=== PATIENT | male | born 1985 | race African-American/Black ===

== ENCOUNTER 2017-06-10 22:44 | Emergency (ER) | payer OTHER ==
[2017-06-10 22:51] VITALS: BP 141/88; PULSE 77; TEMP 98.1; BMI 27.5
--- NOTE | 2017-06-10 23:48 | PDOC ---
History of Present Illness - General History Source: Patient <Jamel Delgadillo - Last Filed: 06/11/17 01:29> - General History Source: Patient, Parent(s) Exam Limitations: No Limitations - History of Present Illness Initial Comments: 06/10/17 23:59 The patient is a 31 year old male, with no significant past medical history, who presents to the emergency department s/p syncopal episode earlier this evening. The patient reports he was running up 6 flights of stairs to go to the bathroom, but when he finally got to the bathroom and urinated he passed out. Patient reports he collapsed on the wooden floor and hit his head. Patient states it was as if the lights went out, but he could still hear his mother talking. Mother denies any seizure activity, changes in vision, headache, chest pain, shortness of breath, diaphoresis, or palpitations. Patient reports some lightheadedness and dizziness after his episode, but states he was able to ambulate s/p incident. He reports similar lightheadedness when working out, but no associated syncope. Patient reports increased stress lately and states he has not been eating as well as he would like. He denies any abdominal pain, nausea, vomiting, diarrhea, or constipation. He denies any urinary incontinence , dysuria, hematuria, frequency, or urgency. He denies any recent travel or sick contacts. Allergies: NKDA Past Surgical History: None reported Social History: Father: heart disease. Non smoker. No ETOH or recreational drug use. <Mateusz Rodriguez - Last Filed: 06/11/17 01:31> - General Chief Complaint: Syncope/Near Syncope Stated Complaint: FATIGUE Time Seen by Provider: 06/10/17 23:48 Past History - Past Medical History COPD: No - Suicide/Smoking/Psychosocial Hx Smoking History: Never smoked Have you smoked in the past 12 months: No Information on smoking cessation initiated: No Hx Alcohol Use: No Drug/Substance Use Hx: No Substance Use Type: None <Jamel Delgadillo - Last Filed: 06/11/17 01:29> <Mateusz Rodriguez - Last Filed: 06/11/17 01:31> - Past Medical History Allergies/Adverse Reactions: Allergies Allergy/AdvReac Type Severity Reaction Status Date / Time No Known Allergies Allergy Verified 06/10/17 22:51 Home Medications: Ambulatory Orders NK [No Known Home Medication] 06/10/17 Review of Systems - Review of Systems Able to Perform ROS?: Yes Comments:: 06/10/17 23:59 CONSTITUTIONAL: Absent: fever, no chills, no fatigue EYES: Absent: visual changes ENT: Absent: ear pain, no sore throat CARDIOVASCULAR: Absent: chest pain, no palpitations RESPIRATORY: Absent: cough, no SOB GI: Absent: abdominal pain, no nausea, no vomiting, no constipation, no diarrhea GENITOURINARY: Absent: dysuria, no frequency, no hematuria MUSCULOSKELETAL: Absent: back pain, no arthralgia, no myalgia SKIN: Absent: rash NEURO: Present: Syncope, dizziness, lightheadedness Absent: headache, seizure <Mateusz Rodriguez - Last Filed: 06/11/17 01:31> *Physical Exam - Vital Signs Last Vital Signs Temp Pulse Resp BP Pulse Ox 98.1 F 77 18 141/88 100 06/10/17 22:48 06/10/17 22:48 06/10/17 22:48 06/10/17 22:48 06/10/17 22:48 <Jamel Delgadillo - Last Filed: 06/11/17 01:29> - Vital Signs Last Vital Signs Temp Pulse Resp BP Pulse Ox 98.1 F 77 18 141/88 100 06/10/17 22:48 06/10/17 22:48 06/10/17 22:48 06/10/17 22:48 06/10/17 22:48 - Physical Exam Comments: 06/10/17 23:59 GENERAL: Well-appearing, well-nourished. No apparent distress. HEENT: Normocephalic, atraumatic. PERRL, EOM intact. CARDIOVASCULAR: Normal S1, S2. Regular rate and rhythm. PULMONARY: Clear to auscultation bilaterally. ABDOMEN: Soft, non-distended, non-tender. EXTREMITIES: Normal ROM in all four extremities. No gross deformities. SKIN: Warm, dry. No rash NEUROLOGICAL: No focal neurological deficits. <Mateusz Rodriguez - Last Filed: 06/11/17 01:31> ED Treatment Course - LABORATORY CBC & Chemistry Diagram: 06/11/17 00:10 06/11/17 00:10 <Jamel Delgadillo - Last Filed: 06/11/17 01:29> - LABORATORY CBC & Chemistry Diagram: 06/11/17 00:10 06/11/17 00:10 - RADIOLOGY Radiograph Interpretation: 06/11/17 01:31 EXAM: Head CT INTERPRETED BY: Dr. Pérez REVIEWED BY: Dr. Delgadillo IMPRESSION: No acute brain parenchymal abnormality. No hemorrhage, mass or acute territorial infarct. Clear visualized paranasal sinuses. Visualized mastoid air cells clear. <Mateusz Rodriguez - Last Filed: 06/11/17 01:31> Medical Decision Making - Medical Decision Making 06/11/17 01:27 Dr. Delgadillo: The scribe's documentation has been prepared under my direction and personally reviewed by me in its entirery. I confirm that the note above accurately reflects all work, treatment, procedures, and medical decision making performed by me. All labs and Ct scan of head return to be negative. Pt feels better. AAO X3. Pt to be discharged. Advised to follow up with cardiology as needed. <Jamel Delgadillo - Last Filed: 06/11/17 01:29> *DC/Admit/Observation/Transfer - Discharge Dispostion Admit: No <Jamel Delgadillo - Last Filed: 06/11/17 01:29> - Attestations Scribe Attestion: 06/10/17 23:59 Documentation prepared by Mateusz Rodriguez, acting as medical administrative specialist for Jamel Delgadillo DO. <Mateusz Rodriguez - Last Filed: 06/11/17 01:31> Diagnosis at time of Disposition: Fainting Qualifiers: Syncope type: vasovagal syncope Qualified Code(s): R55 - Syncope and collapse - Discharge Dispostion Disposition: HOME Condition at time of disposition: Stable - Referrals Referrals: Maynor Magana MD [Staff Physician] - - Patient Instructions Printed Discharge Instructions: DI for Syncope in Adults (Fainting)
[2017-06-11 00:18] LABS: BASOPHIL 0.5 % (0-2.0); EOSINOPHIL 2.2 % (0-4.5); MCHC 33.9 g/dl (32.0-35.9); MEAN CELL VOLUME 82.8 fl (80-96); MEAN PLT VOLUME 10.7 fl (7.5-11.1); NEUTROPHILS 40.5 % (42.8-82.8); PLATELET COUNT 142 K/MM3 (134-434); RDW 13.1 % (11.9-15.9); WHITE BLOOD COUNT 5.8 K/mm3 (4.0-10.0)
[2017-06-11 00:46] LABS: ALBUMIN 3.8 g/dl (3.4-5.0); ANION GAP 11 (8-16); BILIRUBIN,TOTAL 1.4 mg/dL (0.2-1.0); CALCIUM 8.6 mg/dL (8.5-10.1); CO2 26 mmol/L (21-32); CREATININE 1.5 mg/dL (0.7-1.3); GLUCOSE,RANDOM 155 mg/dL (74-106); SGOT/AST 19 U/L (15-37); SGPT/ALT 24 U/L (12-78); TOT PROT 7.5 g/dl (6.4-8.2)
[2017-06-11 00:49] LABS: ALK PHOS 104 U/L (45-117); CPK 307 IU/L (39-308); TROPONIN I < 0.02 ng/ml (0.00-0.05)
[2017-06-11 04:03] LABS: PLATELET COMMENT2 NO CLOTTING DETECTED; PLATELET COMMENT3 MOD LARGE PLTS; PLATELET ESTIMATE SLT DECREASED (NORMAL)
--- NOTE | 2017-06-11 09:43 | EKG ---
Test Reason : Blood Pressure : / mmHG Vent. Rate : 071 BPM Atrial Rate : 071 BPM P-R Int : 140 ms QRS Dur : 086 ms QT Int : 380 ms P-R-T Axes : 060 066 001 degrees QTc Int : 412 ms NORMAL SINUS RHYTHM NONSPECIFIC ST AND T WAVE ABNORMALITY INCOMPLETE RBBB ABNORMAL ECG NO PREVIOUS ECGS AVAILABLE Confirmed by LASHAWN MARTINEZ MD ([id number]) on 06/11/2017 9:43:22 AM Referred By: Confirmed By:LASHAWN MARTINEZ MD
== END 2017-06-11 01:45 | disposition home or self-care (01) ==
LOC: SUPCPDRO 22:44 → JER 22:44
DX: R55 Syncope and collapse (principal)
CPT/HCPCS: 36415; 70450-TC; 80053; 82550; 82553; 83735; 84484; 85025; 93005; 93010; 99281-25